=== PATIENT | male | born 1940 | race Caucasian/White ===

== ENCOUNTER 2018-06-03 14:52 | Emergency (ER) | payer OTHER ==
[2018-06-03 15:04] VITALS: TEMP 98; BMI 29.0
--- NOTE | 2018-06-03 16:04 | PDOC ---
History of Present Illness - General Chief Complaint: Pain Stated Complaint: LT. ARM PAIN Time Seen by Provider: 06/03/18 16:01 - History of Present Illness Initial Comments: 77yo M with PMH of gout and arthritis presenting with left shoulder pain x 3 weeks. Denies recent trauma. He has never had shoulder pain before. The pain is rated 10/10 and worsened with any movement of the left upper extremity. Patient also reports pain in his left elbow and wrist. He saw his primary care physician three weeks ago and was administer a joint injection which did not provide analgesia. Patient took two tablets of tylenol one week ago but did not feel better and so did not continue taking it. He is concerned that he is moving [id number] next month and will be unable to help move boxes. When having a gout flare, he usually has pain in his knees or feet. He has taken colchicine in the past for gout flare-ups which improved his pain. Denies fever , chills, chest pain, or shortness of breath. PCP: Dr. Holliday Past History - Past Medical History Allergies/Adverse Reactions: Allergies Allergy/AdvReac Type Severity Reaction Status Date / Time Penicillins Allergy Intermediate Hives Verified 11/19/14 14:22 Home Medications: Ambulatory Orders Allopurinol 300 mg PO DAILY PRN 11/06/14 Colchicine 0.6 mg PO DAILY PRN #30 tablet 06/03/18 COPD: No HTN: Yes - Immunization History Immunization Up to Date: Yes - Suicide/Smoking/Psychosocial Hx Smoking History: Never smoked Have you smoked in the past 12 months: No Hx Alcohol Use: No Drug/Substance Use Hx: No Substance Use Type: None Hx Substance Use Treatment: No Review of Systems - Review of Systems Comments:: Constitutional: no fever, no chills HEENT: no throat pain, no dysphagia Cardiovascular: no chest pain, no palpitations Respiratory: no cough, no shortness of breath Gastrointestinal: no abdominal pain, no nausea Genitourinary: no dysuria, no frequency Musculoskeletal: +shoulder pain, +elbow pain Skin: no rash, no itching Neurologic: no headache, no weakness *Physical Exam - Vital Signs Last Vital Signs Temp Pulse Resp BP Pulse Ox 98 F 79 19 110/61 97 06/03/18 15:01 06/03/18 15:01 06/03/18 15:01 06/03/18 15:01 06/03/18 15:01 - Physical Exam Comments: General: Awake, alert, and fully oriented, in no acute distress Head: No signs of trauma Eyes: EOMI, sclera anicteric ENT: Moist mucus membranes Neck: Normal ROM, supple Lungs: Lungs clear, Normal breath sounds Cardio: Regular rhythm, S1 and S2 present Abdomen: Soft, nontender RUE: Distal pulses present, Normal range of motion in RUE LUE: Distal pulses present, Patient holding his arm close to his body. Exam limited by pain, Tender to palpation in anterior shoulder, posterior elbow, and ulnar aspect of wrist. Base of middle phalange of third digit with significant tophi, no rashes or lesions present, no erythema, minor swelling present in shoulder SKIN: Warm, Dry, normal turgor Neurologic: Cranial nerves II through XII grossly intact. Normal speech Back: No midline tenderness Medical Decision Making - Medical Decision Making 77yo M with PMH of gout and arthritis presenting with left shoulder pain x 3 weeks. DDX including but not limited to arthritis, gout exacerbation, fracture, septic arthritis, osteomyelitis, reactive arthritis, compartment syndrome Radiographs of RUE Patient unsure of his prescriptions. Called [facility] [address]: Lasix 40, Indomethacin 50, and Allopurinol 300 Colchicine given for acute gout flare-up High suspicion for gout flare-up/arthritic changes given patient's past medical history. Low suspicion for septic joint, compartment syndrome given patient is afebrile, his pain is polyarticular, and the joints are nonerythematous. Will defer joint aspiration at this time. Elbow: "Findings: No joint effusion appreciated. No fracture or dislocation to the bones of the elbow joint evident. Juxta articular erosive changes with sclerotic margins noted olecranon process of the proximal ulna. Impression: 1. Negative for fracture. 2. Juxta articular erosive change. Findings may suggest gouty arthropathy. Infection also in the differential." Shoulder: Findings: No fracture or dislocation of the bones of the shoulder joint evident. No periarticular soft tissue calcifications appreciated. Degenerative changes noted glenohumeral and AC joint. No erosive changes appreciated. Impression: Degenerative change of the joint space. Wrist/Hand: Findings: "There is a chronic dislocated appearance to the PIP joint of the third digit. Erosive changes of this joint space noted. Soft tissue swelling present at this level without soft tissue calcification identified. Otherwise no acute fracture or dislocation to the bones of the hand/wrist evident. Juxta articular erosive changes of the second metacarpal head, distal ulna noted. Cystic changes of the proximal carpal row may also suggest erosions. No soft tissue calcifications evident hand or wrist.. Impression: 1. 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 2. Erosive changes second metacarpal head, distal ulna and proximal carpal row. Again findings may relate to gouty arthropathy. Clinical correlation advised" Radiographs without acute pathology Colchicine prescription sent to pharmacy Referral for rheumatology Patient discharged *DC/Admit/Observation/Transfer Diagnosis at time of Disposition: Shoulder pain, left Qualifiers: Chronicity: acute Qualified Code(s): M25.512 - Pain in left shoulder - Discharge Dispostion Disposition: HOME Condition at time of disposition: Stable - Prescriptions Prescriptions: Colchicine 0.6 mg PO DAILY PRN #30 tablet PRN Reason: Pain Level 7 - 10 - Referrals Referrals: Clifford Holliday MD [Primary Care Provider] - Terrance Green MD [Staff Physician] - - Patient Instructions Printed Discharge Instructions: DI for Joint Pain Additional Instructions: You came to the ED for shoulder pain. Xray did not show acute pathology. You can also take [id number] tylenol for pain. Follow the instructions on the medication bottle. Prescription sent to your pharmacy. Take as instructed on the label. We have referred you to a entry level mechanical engineer. Call the number provided an make an appointment for the next week. You should also follow-up with your primary care doctor this week. Your care is not complete until you do so. Return to the Emergency Department if you experience any new or concerning symptoms. If you think you are having an emergency, call for emergency medical services or present to the emergency department right away - Post Discharge Activity
[2018-06-03] MEDS ORDERED: COLCHICINE 0.6 MG TABLET (FP) PO ONE (17:05)
[2018-06-03] MEDS ORDERED: COLCHICINE 0.6 MG TABLET (FP) ONE (17:09)
--- NOTE | 2018-06-03 17:17 | PDOC ---
Documentation entered by Heather Rosas SCRIBE, acting as scribe for Carolyne Lopez MD. Carolyne Lopez MD: This documentation has been prepared by the danaibe, Heather Rosas SCRIBE, under my direction and personally reviewed by me in its entirety. I confirm that the documentation accurately reflects all work, treatment, procedures, and medical decision making performed by me. Attending Attestation - Resident Resident Name: Carolyne Morgan - ED Attending Attestation I have performed the following: I have examined & evaluated the patient, The case was reviewed & discussed with the resident, I agree w/resident's findings & plan, Exceptions are as noted - HPI HPI: 06/03/18 16:54 77 year old male with past medical history of gout who presents to the ED with three weeks complaint of left shoulder pain. He reports the pain has worsened to the point where he cannot move it. It has not been relieved by Tylenol or a cortisone injection given by his PCP two weeks ago. He denies any numbness or tingling. No fevers or chills. He notes his gout normally affects him in his lower extremities. - Physicial Exam PE: GENERAL: Awake, alert, and fully oriented, in no acute distress HEAD: No signs of trauma EYES: PERRLA, EOMI, sclera anicteric, conjunctiva clear ENT: Auricles normal inspection, hearing grossly normal, nares patent, oropharynx clear without exudates. Moist mucosa NECK: Normal ROM, supple, no lymphadenopathy, JVD, or masses LUNGS: Breath sounds equal, clear to auscultation bilaterally. No wheezes, and no crackles HEART: Regular rate and rhythm, normal S1 and S2, no murmurs, rubs or gallops ABDOMEN: Soft, nontender, normoactive bowel sounds. No guarding, no rebound. No masses EXTREMITIES: LUE with dec ROM of the shoulder due to pain. +Tophi to multiple joints in the hand. No warmth, no erythema, no skin lesions. Remainder of extremities with normal range of motion, no edema. No clubbing or cyanosis. No cords, erythema, or tenderness NEUROLOGICAL: Cranial nerves II through XII grossly intact. Normal speech, normal gait. Motor and sensation intact SKIN: Warm, Dry, normal turgor, no rashes or lesions noted. - Medical Decision Making Pt is not on colchicine but it has helped with his pain in the past. Will also consider medrol dose alfa.
[2018-06-03 18:51] VITALS: BP 116/62; PULSE 78
== END 2018-06-03 18:51 | disposition home or self-care (01) ==
LOC: JER 14:52
DX: M25.512 Pain in left shoulder (principal); I10 Essential (primary) hypertension; Z87.39 Personal history of other diseases of the musculoskeletal system and connective tissue
CPT/HCPCS: 73030-TC-LT-FY; 73070-TC-LT-FY; 73110-TC-LT-FY; 73130-TC-LT-FY; 99282-25